=== PATIENT | female | born 1995 | race Caucasian/White ===

== ENCOUNTER 2023-01-17 09:28 | Outpatient (CLI) | payer BC | END 2023-01-17 09:29 | disposition home or self-care (01) | LOC: BICRAD 09:28 | PROVIDERS: ATTEND Nurse Practitioner Family | DX: M54.50 Low back pain, unspecified (principal); M19.09 Primary osteoarthritis, other specified site | CPT/HCPCS: 72100 ==

== ENCOUNTER 2024-04-03 14:08 | Emergency (ER) | payer BC ==
[2024-04-03] MEDS ORDERED: HYDROcodone/Acetaminophen 5/325 mg Tablet ONE (15:21)
[2024-04-03] MEDS ORDERED: Boostrix 0.5 ML (Tdap) VIAL (>/=7 yrs of age) ONE (15:21)
== END 2024-04-03 16:25 | disposition home or self-care (01) ==
LOC: ERS 14:08
DX: S06.0X0A Concussion without loss of consciousness, initial encounter (principal); S00.81XA Abrasion of other part of head, initial encounter; V18.4XXA Pedal cycle driver injured in noncollision transport accident in traffic accident, initial encounter; Y93.55 Activity, bike riding
CPT/HCPCS: 70450; 71045; 72125; 90471; 90715